=== PATIENT | female | born 1990 | race Caucasian/White ===

== ENCOUNTER → 2017-06-23 13:49 | Outpatient (CLI) | payer OTHER, SELFPAY ==
[2017-06-23 18:12] LABS: Group B Strep DNA By PCR Negative (Negative); Internal Control PASS; Probe Check PASS; Specimen Processing Control PASS
== END ==
PROVIDERS: Visit Provider Obstetrics & Gynecology
DX: Z36.85 Encounter for antenatal screening for Streptococcus B (principal)
CPT/HCPCS: 87081; 87653

== ENCOUNTER 2017-07-21 06:55 | Inpatient (IN) | payer OTHER, SELFPAY ==
[2017-07-21] MEDS: Lactated Ringers 1,000 ML 50 ML IV ×2 (07:33→09:52)
[2017-07-21 07:43] VITALS: BMI 27.0
[2017-07-21 07:52] LABS: Hematocrit 38.8 % (37-47); Hemoglobin 13.1 g/dl (12.0-15.0); Mean Corp Hgb Conc 33.8 g/gl (32-36); Mean Corpuscular Volume 88.8 fL (81-99); Mean Platelet Vol. 9.4 fl (6.2-12.0); Platelet Count 277 K/mm3 (150-450); RBC Distribution Width CV 14.9 % (11.6-14.6); RBC Distribution Width SD 47.7 fl (35.1-43.9); Red Blood Count 4.37 M/mm3 (4.2-5.4); White Blood Count 11.1 K/mm3 (4.4-11.0)
[2017-07-21 07:53] LABS: Scan Indicated on CBC? Y/N NO
[2017-07-21] MEDS: Oxytocin 30 units/NS 500 ml 30 UNITS/500 ML IV.SOLN IV (08:10)
[2017-07-21] MEDS: Oxytocin 30 units/NS 500 ml 30 UNITS/500 ML IV.SOLN 334 UNITS IV (12:37)
--- NOTE | 2017-07-21 12:54 | PCM.OB.VAG ---
- Problem List (1) Term delivered Status: Acute Vaginal Delivery Maternal Presentation: Elective Induction Admitted at 39w6d a for elective induction of labor Method of Induction: Pitocin Amniotic Membrane Rupture Type: Artificial Rupture of Membrane time: 819 Amniotic Fluid Description: Clear Final ELVIN: 07/22/17 Final ELVIN Source: US <20 weeks Gestational age: 39 Weeks and 6 Days Date of Procedure: 07/21/17 Pre-Operative Diagnosis: Labor Post-Operative Diagnosis: same Surgery/ Procedure Performed: Spontaneous Vaginal Delivery Anesthesiologist: Norm Barber Type of Anesthesia: Epidural Description of Procedure: Progressed from 4cm to FD over 4 hours. With minimal pitocin given. Pushed for 30 minutes to deliver a live male without complication. There was an active cry at delivery. The nose and mouth were suctioned with a bulb suction. Delayed cord clamping was employed. The Cord was clamped and cut. Cord bloods were collected. The placenta was delivered spontaeously intact with a centrally located 3VC. The uterus contracted well. The upper vagina and cervix were inspected and found to be intact. There was a second degree posterior vaginal perineal tear that was repaired in stabndard fashion with 2-0 and 3-0 vicryl. Presentation: Vertex Placental Delivery Description: Spontaneous Placenta Disposition: [facility] Percentage of Placenta Abruption: 0 Cord Vessel Description: 3 Vessels Nuchal Cord Compression: Without compression Cord Entanglement: None Estimated Blood Loss: 300cc A gender: Male (1 minute): 9 (5 minute): 9 Episiotomy Description: None Laceration: Midline, Perineal Extension/lac, Vaginal Extension/lac, 2nd degree Medications given after delivery: IV Pitocin Complications: None
[2017-07-21] MEDS: Oxytocin 30 units/NS 500 ml 30 UNITS/500 ML IV.SOLN 167 UNITS IV (13:07)
[2017-07-21] MEDS: Lactated Ringers 1,000 ML 15 ML IV (13:44)
[2017-07-21] MEDS: 0.9% Saline Lock 10 ML Syringe IV (15:00)
[2017-07-21] MEDS: Ibuprofen 600 MG Tablet PO (16:42)
[2017-07-21 17:38] VITALS: BP 131/83; PULSE 78; RESP 16; TEMP 36.7
[2017-07-21 19:45] VITALS: BP 118/55; PULSE 84; RESP 16; TEMP 37.1
--- NOTE | 2017-07-21 20:22 | DCINST_ITS ---
Discharge Diet: No Restrictions Discharge Activity: Return to Normal Activity, May Drive, May Shower Return to work on:: 09/06/17 May shower in (days): 0 May resume sexual activity in: 4-6 weeks Call your doctor if your incision/area has: Sudden Increased Bleeding, Increased Pain/ Swelling, Increased Redness, Foul Smelling Discharge Call your doctor if you observe: Fever of 101 or Higher, Inability to urinate, Inability to have a bowel movement, Using more than one pad per hour, Shortness of breath, Chest pain, Calf discomfort, Uncontrolled pain Cleanse incision/area with: Soap & Water Additional Instructions: If you experience any of the following, contact your healthcare provider. * Bleeding that soaks a pad every hour for 2 hours * Fever 100.4 or higher * Unrelieved incision or abdominal pain * Swelling, redness, discharge or bleeding from your incision or episiotomy site * Your incision begins to separate * Problems urinating (including inability to urinate or burning while urinating) . * Visual changes * Severe headache * Flu-like symptoms * Pain or redness in one of both of your breasts * Pain, warmth, tenderness or swelling in your legs, especially the calf area * Frequent nausea and vomiting * Symptoms of depression or anxiety If you experience any of the following, call 911 or go to the nearest Emergency Room. * Chest pain * Problems breathing * Seizure activity * Partial or complete paralysis of a body part, slurred speech, weakness or drooping of the face, or a sudden inability to walk or hold your balance Allergies/Adverse Reactions: Allergies No Known Allergies Allergy (Verified 06/11/15 06:27) Medications to take at Discharge Vits [Prenatabs FA ] 1 tablet PO DAILY 06/11/15 L.acidoph,Paracasei, B.lactis [Probiotic] 1 each PO DAILY 09/17/16 Cetirizine HCl [Zyrtec] 10 mg PO DAILY 07/21/17 Ibuprofen [Motrin] 800 mg PO TID PRN PRN #30 tab 07/21/17 The following prescriptions were given: Ibuprofen [Motrin] 800 mg PO TID PRN PRN #30 tab PRN Reason: pain or cramping Please Follow Up With: Cuate Lassiter MD When: 6 weeks Primary Care Physician: Melvina Quintero [employer]-C [Primary Care Provider] - Proposed Discharge Date: 07/23/17
[2017-07-22] MEDS: Ibuprofen 600 MG Tablet PO ×2 (00:47→09:50)
[2017-07-22 00:50] VITALS: BP 115/71; PULSE 72; RESP 16; TEMP 37.2
[2017-07-22 03:15] VITALS: BP 123/71; PULSE 67; RESP 16; TEMP 36.8
[2017-07-22 06:29] LABS: Hemoglobin 12.3 g/dl (12.0-15.0); Mean Corp Hgb Conc 32.4 g/gl (32-36); Mean Corpuscular Hgb 28.9 pg (27.0-32.0); Mean Corpuscular Volume 89.2 fL (81-99); Mean Platelet Vol. 9.5 fl (6.2-12.0); Platelet Count 234 K/mm3 (150-450); RBC Distribution Width CV 15.1 % (11.6-14.6); RBC Distribution Width SD 48.1 fl (35.1-43.9); Red Blood Count 4.26 M/mm3 (4.2-5.4); White Blood Count 16.7 K/mm3 (4.4-11.0)
[2017-07-22 06:39] LABS: Scan Indicated on CBC? Y/N NO
--- NOTE | 2017-07-22 08:01 | PCM.PN.OB ---
Patient Problems: Active and Suspected Problems Term delivered (Acute) Subjective: Doing well. No specific complaints. Breast feeding. Objective: Afeb VSS. Hgb stable - Physical Exam General: Alert, Oriented x3, Cooperative, No apparent distress Lungs: Clear to auscultation, Normal air movement Cardiovascular: Regular rate, Regular Rhythm Abdomen: Soft, Non Tender, Non-Distended, - - Fundus firm nontender Extremities: No edema Skin: No rashes Neurological: Neuro grossly intact Psych/Mental Status: Normal Affect Comment: Lochia light Vital Signs Temp Pulse Resp BP 98.3 F 67 16 123/71 H 07/22/17 03:15 07/22/17 03:15 07/22/17 03:15 07/22/17 03:15 Oxygen Delivery Method Room Air Weight: 162 lb 7.691 oz Body Mass Index (BMI) 27.0 Intake and Output for Last 24 Hours 07/20/17 07/21/17 07/22/17 23:59 23:59 23:59 Intake Total 2214 / 2214 Output Total 2500 / 2500 Balance -286 / -286 Laboratory Tests Past 24 Hrs 07/21/17 07/22/17 07:30 06:15 WBC 16.7 H RBC 4.26 Hgb 12.3 Hct 38.0 MCV 89.2 MCH 28.9 MCHC 32.4 RDW 15.1 H RDW Differential 48.1 H Plt Count 234 MPV 9.5 Blood Type O POSITIVE Antibody Screen NEGATIVE Assessment/Plan Active and Suspected Problems Term delivered (Acute) Doing well on PP day#1. Cleared for discharge home when PP for 24 hours. Home going instructions and warnings given.
--- NOTE | 2017-07-22 08:02 | PCM.DC.SUM ---
Discharge Date and Diagnosis - Problem List Patient Problems: Active and Suspected Problems Term delivered (Acute) Date of Admission: 07/21/17 Date of Discharge: 07/22/17 - Primary Discharge Diagnosis Active and Suspected Problems Term delivered (Acute) Hospital Course and Treatment Consultations 07/21/17 06:59 Consult: Anesthesia Routine Comment: Reason For Exam: Operations: None Procedures: - - Epidural anesthesia, spontaneous vaginal delivery, pitocin induction Summary of Care Provided: The patient is a 26 year old F admitted for elective induction of labor. Pitocin induction performed with resultant delivery of a live male . Post course unremarkable. Discharge Diet: No Restrictions Discharge Activity: Return to Normal Activity, [address], May Shower Return to work on:: 09/06/17 May shower in (days): 0 May resume sexual activity in: 4-6 weeks Call your doctor if your incision/area has: Sudden Increased Bleeding, Increased Pain/ Swelling, Increased Redness, Foul Smelling Discharge Call your doctor if you observe: Fever of 101 or Higher, Inability to urinate, Inability to have a bowel movement, Using more than one pad per hour, Shortness of breath, Chest pain, Calf discomfort, Uncontrolled pain Cleanse incision/area with: Soap & Water Home Medications: Medications to take at Discharge Vits [Prenatabs FA ] 1 tablet PO DAILY 06/11/15 L.acidoph,Paracasei, B.lactis [Probiotic] 1 each PO DAILY 09/17/16 Cetirizine HCl [Zyrtec] 10 mg PO DAILY 07/21/17 Ibuprofen [Motrin] 800 mg PO TID PRN PRN #30 tab 07/21/17 Following Prescrptions Were Given to Patient: Ibuprofen [Motrin] 800 mg PO TID PRN PRN #30 tab PRN Reason: pain or cramping Primary Care Physician: Melvina Quintero NP-C [Primary Care Provider] - Please Follow Up With: Cuate Lassiter MD When: 6 weeks Disposition: Home Minutes spent on discharge:: 15 Patient Condition:: Good Meaningful Use Info Meaningful Use Diagnoses (Choose all that apply): None applicable
[2017-07-22] MEDS: Dibucaine 30 GM Tube 1 APPLIC TOPICAL (09:50)
[2017-07-22] MEDS: Senna/Docusate Sodium 1 Tablet PO (09:51)
[2017-07-22 10:04] VITALS: BP 117/59; PULSE 105; RESP 16; TEMP 36.1; O2SAT 98
--- NOTE | 2017-07-22 11:54 | NURSING ---
0900 While rounding, Mom states that she is not sure if her insurance coverage with a home pump. Mom to be calling her insurance and will let us know. Sumit MYERS
[2017-07-22 14:00] VITALS: BP 114/71; PULSE 88; RESP 16; TEMP 36.9; O2SAT 96
== END 2017-07-22 16:30 | disposition home or self-care (01) | DRG 775 ==
PROVIDERS: Admitting Provider Obstetrics & Gynecology; Family Provider Nurse Practitioner Family; PCP Nurse Practitioner Family; Visit Provider Obstetrics & Gynecology
DX: O69.81X0 Labor and delivery complicated by cord around neck, without compression, not applicable or unspecified (principal); K21.9 Gastro-esophageal reflux disease without esophagitis; O70.1 Second degree perineal laceration during delivery; Z79.899 Other long term (current) drug therapy; Z37.0 Single live birth; Z3A.39 39 weeks gestation of pregnancy
CPT/HCPCS: 59025; 59050; 85027; 86850; 86900; 99218; J7120; A4216; G0378

== ENCOUNTER → 2017-09-01 13:34 | Outpatient (CLI) | payer OTHER, SELFPAY ==
[2017-09-01 14:33] LABS: Pregnancy, Serum, hCG Quali. NEGATIVE Negative (0-9 Nonpreg)
== END ==
PROVIDERS: Visit Provider Obstetrics & Gynecology
DX: Z30.014 Encounter for initial prescription of intrauterine contraceptive device (principal)
CPT/HCPCS: 36415; 84144; 84703

== ENCOUNTER → 2019-03-08 15:23 | Outpatient (CLI) | payer OTHER, SELFPAY ==
[2019-03-14 13:28] LABS: HPV APTIMA, High Risk Negative (Negative)
[2019-03-14 13:29] LABS: HPV Reflexed? YES, CHARGE PATIENT
== END ==
PROVIDERS: Visit Provider Obstetrics & Gynecology
DX: Z12.4 Encounter for screening for malignant neoplasm of cervix (principal)
CPT/HCPCS: 87624; 88175; G0145